=== PATIENT | male | born 1995 | race African-American/Black ===

== ENCOUNTER 2021-10-02 19:17 | Emergency (ER) | payer SELFPAY ==
[~2021-10-02] VITALS: Ht 193 cm; Wt 104.5 kg
[2021-10-02 19:34] VITALS: TEMP 98.9
[2021-10-02 20:26] LABS: STREP SCREEN NEGATIVE
[2021-10-02] MEDS ORDERED: AMOXICILLIN875 MG PO (20:58)
[2021-10-02 21:30] VITALS: BP 120/81; PULSE 80
[2021-10-03] MEDS ORDERED: DOXYCYCLINE 10100 MG PO (12:35)
== END 2021-10-02 21:35 | disposition home or self-care (01) ==
LOC: COL.ER 19:17
PROVIDERS: Emergency Medicine
DX: J35.1 Hypertrophy of tonsils (principal); Z20.2 Contact with and (suspected) exposure to infections with a predominantly sexual mode of transmission; Z20.822 Contact with and (suspected) exposure to COVID-19; Z28.310 Unvaccinated for COVID-19
CPT/HCPCS: J8540